=== PATIENT | male | born 1990 | race Caucasian/White ===

== ENCOUNTER 2018-06-14 09:54 | Emergency (ER) | payer OTHER ==
[~2018-06-14] VITALS: Ht 180.3 cm; Wt 68.0 kg
[2018-06-14 10:00] VITALS: BP_SYST 124
[2018-06-14] MEDS ORDERED: ALBUTEROL SULFATE 0.083% 2.5 MG/3 ML VIAL.NEB INH ONE (11:15)
[2018-06-14] MEDS ORDERED: PROMETHAZINE 6.25 MG/ CODEINE 10 MG/ 5 ML PO ONE (11:15)
[2018-06-14 12:10] VITALS: BP_SYST 132
== END 2018-06-14 12:10 | disposition home or self-care (01) ==
LOC: SED 09:54
DX: J40 Bronchitis, not specified as acute or chronic (principal)
CPT/HCPCS: 71046; 93005; 94640; 99283; J7613

== ENCOUNTER 2022-11-15 13:03 | Emergency (ER) | payer OTHER ==
[~2022-11-15] VITALS: Ht 182.9 cm; Wt 72.6 kg
[2022-11-15 13:12] VITALS: BP_SYST 116
[2022-11-15] MEDS ORDERED: KETOROLAC TROMETHAMINE 30 MG VIAL IVP ONE (13:30)
[2022-11-15] MEDS ORDERED: DIPHTH,PERTUSS(ACELL),TET VAC 0.5 ML VIAL (Tdap) I.M. ONE (13:30)
[2022-11-15] MEDS ORDERED: RABIES VACCINE (PCEC)/PF 2.5 UNIT VIAL I.M. ONE (13:30)
[2022-11-15] MEDS ORDERED: RABIES IMMUNE GLOBULIN/PF 300 UNIT/2 ML VIAL I.M. ONE (13:30)
[2022-11-15 13:36] LABS: BASOPHILS % (AUTO) 0.6 % (0.0-2.0); EOSINOPHILS # (AUTO) 0.1 K/uL (0.0-0.4); EOSINOPHILS % (AUTO) 1.9 % (0.0-4.0); HEMATOCRIT 46.2 % (36-54); HEMOGLOBIN 15.2 g/dL (14.0-18.0); LYMPHOCYTES # (AUTO) 2.2 K/uL (1.0-5.5); LYMPHOCYTES % (AUTO) 30.8 % (20.5-51.5); MEAN CORPUSCULAR HEMOGLOBIN 27 pg (27-31); MEAN CORPUSCULAR HGB CONC 33 % (32-36); MEAN CORPUSCULAR VOLUME 82 fL (79.0-98.0); MONOCYTES # (AUTO) 0.5 K/uL (0.0-1.0); MONOCYTES % (AUTO) 6.9 % (1.7-9.3); NEUTROPHILS # (AUTO) 4.4 K/uL (1.8-7.7); NEUTROPHILS % (AUTO) 59.8 % (40.0-70.0); PLATELET COUNT (AUTO) 321 K/uL (130-430); RED BLOOD CELL COUNT(AUTO) 5.62 MIL/uL (4.2-6.2); RED CELL DISTRIBUTION WIDTH 13.8 % (9.0-15.0); WHITE BLOOD COUNT (AUTO) 7.3 K/uL (4.8-10.8)
[2022-11-15 13:51] LABS: CALCIUM 9.2 mg/dL (8.4-11.0); CREATININE 1.18 mg/dL (0.55-1.30)
[2022-11-15 13:56] LABS: ALBUMIN 4.2 g/dL (3.4-4.8); TOTAL BILIRUBIN 0.4 mg/dL (0.0-1.0)
[2022-11-15] MEDS ORDERED: AUG875 PO (14:16)
[2022-11-15] MEDS ORDERED: IBUP-1969 PO (14:16)
[2022-11-15 14:20] VITALS: BP_SYST 116
== END 2022-11-15 14:19 | disposition home or self-care (01) ==
LOC: SED 13:03
DX: S41.151A Open bite of right upper arm, initial encounter (principal); Z79.899 Other long term (current) drug therapy; W54.0XXA Bitten by dog, initial encounter; Y93.89 Activity, other specified; Y92.89 Other specified places as the place of occurrence of the external cause; Y99.8 Other external cause status
CPT/HCPCS: 99284; 80053; 85025; 36415; 90715; 96372; 90471; J1885; 90376